=== PATIENT | male | born 1960 | race Caucasian/White ===

== ENCOUNTER → 2016-11-26 | Outpatient (CLI) | payer BC ==
--- NOTE | 2016-11-26 11:51 | PCVCIMAG ---
APPROVED REPORT Exam: Stress Echocardiogram Indication: Hypertension, RBBB, Abn. Calcium score Patient Location: Echo lab Stress Nurse: Annette Mahoney RN Status: routine Ht: 5 ft 10 in HR: 59 bpm BP: 140/80 mmHg Rhythm: RBBB Procedure The patient underwent an Exercise Stress Test using the Abdias Protocol. Blood pressure, heart rate, and EKG were monitored. An Echocardiogram was performed by nutrition technician in four stages in quad fashion. At peak stress, four selected images were obtained and placed side by side with resting images for comparison. Stress Test Details Stress Test: Exercise stress testing was performed using a Abdias protocol. HR Resting HR: 59 bpmMax Heart Rate (APMHR): 162 bpm Max HR Achieved: 151 bpmTarget HR (85% APMHR): 137 bpm % of APMHR: 93 HR response to stress: Normal HR response to stress BP Resting BP: 140/80 mmHg Max BP: 254/88 mmHg ECG Resting ECG: Sinus Rhythm, RBBB Stress ECG: Sinus Rhythm, RBBB ST Change: Non-ischemic Clinical Reason for Termination: Maximal effort Exercise duration: 13 min sec Highest Stage Achieved: Stage 5: 5.0 mph at 18% grade. Exercise capacity: 17.20 METs Pre-Stress Echo The resting Echocardiogram showed normal left ventricular contractility with an estimated Ejection Fraction of about 55-60%. Normal wall motion in all segments on baseline images. Post-Stress Echo The stress Echocardiogram showed normal left ventricular contractility with an estimated Ejection Fraction of about 65-70%. Normal augmentation of wall motion in all segments on post stress images. Clinical No clinical or ECG evidence for ischemia. Conclusion Clinical Response: Non-ischemic Exercise Capacity: Superior Stress ECG Response: Non-ischemic Stress Echo Images: Non-ischemic Other Information Study Quality: Good
== END | disposition home or self-care (01) ==
LOC: PCVCIMAG 10:27
PROVIDERS: ATTEND Internal Medicine Cardiovascular Disease
DX: I45.10 Unspecified right bundle-branch block (principal); I10 Essential (primary) hypertension; I25.10 Atherosclerotic heart disease of native coronary artery without angina pectoris; K21.9 Gastro-esophageal reflux disease without esophagitis; E78.00 Pure hypercholesterolemia, unspecified; R93.1 Abnormal findings on diagnostic imaging of heart and coronary circulation; Z79.82 Long term (current) use of aspirin; Z98.52 Vasectomy status
CPT/HCPCS: 93325; 93351; G0463